=== PATIENT | male | born 1995 | race Caucasian/White ===

== ENCOUNTER 2021-08-20 05:51 | Day surgery (SDC) | payer BC ==
[~2021-08-20 05:51] MED LIST: Sodium Chloride 0.9% 10 ML Syringe FLUSH SCH
[2021-08-20] MEDS ORDERED: fentaNYL 100 MCG/2 ML SDV IV ONE ×3 (05:52→07:06)
[2021-08-20] MEDS ORDERED: Midazolam 1 MG/ML 2 ML SDV IV ONE ×3 (05:52→07:08)
[2021-08-20] MEDS ORDERED: Dextrose 5%-0.45% NaCl 1,000 ML IV SCH (06:00)
[2021-08-20] MEDS ORDERED: Sodium Chloride 0.9% 10 ML Syringe FLUSH PRN (06:00)
[2021-08-20] MEDS ORDERED: Midazolam 1 MG/ML 2 ML SDV ONE (06:41)
[2021-08-20] MEDS ORDERED: fentaNYL 100 MCG/2 ML SDV ONE (06:41)
[2021-08-20 12:07] VITALS: BP 120/64; PULSE 61
== END 2021-08-20 09:08 | disposition home or self-care (01) ==
LOC: DL.ENDO 05:51
PROVIDERS: ATTEND Internal Medicine Gastroenterology
DX: R19.7 Diarrhea, unspecified (principal); T43.615A Adverse effect of caffeine, initial encounter; K90.0 Celiac disease; Z72.89 Other problems related to lifestyle; Z01.812 Encounter for preprocedural laboratory examination; Z20.822 Contact with and (suspected) exposure to COVID-19; Z83.79 Family history of other diseases of the digestive system
CPT/HCPCS: 43239; 87077; 87635; J2250; J3010; J7042; U0002

== ENCOUNTER 2021-08-24 05:22 | Day surgery (SDC) | payer BC ==
[2021-08-24] MEDS ORDERED: Midazolam 1 MG/ML 2 ML SDV IV ONE ×7 (05:23→07:01)
[2021-08-24] MEDS ORDERED: fentaNYL 100 MCG/2 ML SDV IV ONE ×7 (05:23→07:08)
[2021-08-24] MEDS ORDERED: Dextrose 5%-0.45% NaCl 1,000 ML IV SCH (05:45)
[2021-08-24] MEDS ORDERED: fentaNYL 100 MCG/2 ML SDV ONE (06:13)
[2021-08-24] MEDS ORDERED: Midazolam 1 MG/ML 2 ML SDV ONE (06:13)
[2021-08-24 11:47] VITALS: BP 119/56; PULSE 57
== END 2021-08-24 09:30 | disposition home or self-care (01) ==
LOC: DL.ENDO 05:22
PROVIDERS: ATTEND Internal Medicine Gastroenterology
DX: K52.9 Noninfective gastroenteritis and colitis, unspecified (principal); K63.3 Ulcer of intestine; Z98.890 Other specified postprocedural states
CPT/HCPCS: J2250; J3010; J7042